=== PATIENT | male | born 1965 | race Caucasian/White ===

== ENCOUNTER 2025-01-07 22:22 | Inpatient (IN) | payer SELFPAY ==
[2025-01-08 00:12] LABS: BASOPHILS ABSOLUTE AUTO 0.04 K/uL (0.00-0.10); BASOPHILS PERCENT AUTO 0.2 % (0.1-1.3); HEMATOCRIT 43.2 % (38.4-49.7); HEMOGLOBIN 14.7 g/dL (12.9-16.9); IMMATURE GRAN ABSOLUTE AUTO 0.56 K/uL (0.00-0.23); IMMATURE GRAN PERCENT AUTO 2.6 % (0.0-0.7); LYMPHOCYTES ABSOLUTE AUTO 0.26 K/uL (0.8-3.3); LYMPHOCYTES PERCENT AUTO 1.2 % (11.4-47.7); MEAN CORPUSCULAR VOLUME 88.2 fL (81.4-99.0); MONOCYTES ABSOLUTE AUTO 0.44 K/uL (0.20-0.90); NEUTROPHILS ABSOLUTE AUTO 20.59 K/uL (1.0-7.6); PLATELET COUNT,PLT 244 K/uL (130-375); WHITE BLOOD CELL COUNT,WBC 21.9 K/uL (3.2-11.0)
[2025-01-08 00:48] LABS: ALANINE AMINOTRANSFERASE,ALT 148 U/L (12-78); ALBUMIN 3.8 g/dL (3.4-5.0); ALKALINE PHOSPHATASE 98 U/L (46-116); ANION GAP 15.4 mmol/L (5.0-14.0); ASPARTATE AMNIOTRANSFERASE,AST 225 U/L (15-37); BILIRUBIN TOTAL 1.1 mg/dL (0.2-1.0); BLOOD UREA NITROGEN,BUN 22 mg/dL (7-18); C-REACTIVE PROTEIN 1.91 mg/dL (<0.50); CALCIUM 9.3 mg/dL (8.5-10.1); CARBON DIOXIDE,CO2 26 mmol/L (21-32); CHLORIDE,CL 106 mmol/L (100-108); CREATININE 0.9 mg/dL (0.8-1.3); EST CRCL DRUG DOSING (CG) 104.02 mL/min; ESTIMATED GFR 99 mL/min (>60); GLUCOSE RANDOM 140 mg/dL (74-106); POTASSIUM,K 3.4 mmol/L (3.6-5.2); PROTEIN TOTAL,TP 7.6 g/dL (6.4-8.2); SODIUM,NA 144 mmol/L (140-148)
[2025-01-08] MEDS: Sodium Chloride 0.9% 100 ML IV SCH (01:07)
[2025-01-08] MEDS: Sodium Chloride 0.9% 10 ML Syringe FLUSH PRN (01:07)
[2025-01-08] MEDS: Iopamidol 612 MG/ML 100 ML Bottle IV SCH (01:07)
[2025-01-08] MEDS: Sodium Chloride 0.9% 1,000 ML IV SCH (03:37)
[2025-01-08] MEDS ORDERED: Sodium Chloride 0.9% 1,000 ML IV SCH (03:45)
[2025-01-08] MEDS: cefTRIAXone 2 GM in Sodium Chloride 0.9% 50 ML IV ONE (03:51)
[2025-01-08] MEDS: metroNIDAZOLE/Normal Saline 500 MG in Premix Bag 1 BAG IV ONE (03:51)
[2025-01-08 04:12] LABS: APPEARANCE,URINE CLEAR (CLEAR); BILIRUBIN,URINE NEGATIVE (NEGATIVE); COLOR,URINE YELLOW (YELLOW); GLUCOSE,URINE NEGATIVE (NEGATIVE); KETONES,URINE TRACE mg/dL (NEGATIVE); LEUKOCYTE ESTERASE,URINE NEGATIVE (NEGATIVE); NITRITE,URINE NEGATIVE (NEGATIVE); OCCULT BLOOD,URINE TRACE-INTACT (NEGATIVE); PH,URINE 8.5 (5.0-8.0); PROTEIN,URINE 30 mg/dL (NEGATIVE)
[2025-01-08 04:19] LABS: AMORPHOUS SEDIMENT,URINE NOT SEEN; BACTERIA,URINE RARE; EPITHELIAL CELLS,URINE RARE; MUCUS,URINE RARE; WBC,URINE 0-5 (0-5)
[2025-01-08] MEDS: VANCOmycin 1.5 GM in Sodium Chloride 0.9% 250 ML IV ONE (04:34)
[2025-01-08 04:40] LABS: LYME AB IgG Negative (Negative); LYME AB IgM Negative (Negative)
[2025-01-08] MEDS: Acetaminophen 325 MG Tab PO ONE (08:03)
[2025-01-08] MEDS ORDERED: Polyethylene Glycol 3350 Powder 17 GM Packet PO PRN (09:50)
[2025-01-08] MEDS ORDERED: Naloxone 0.4 MG/ML SDV IVPUSH PRN (09:50)
[2025-01-08] MEDS ORDERED: Ondansetron 4 MG/2 ML SDV IV PRN (09:50)
[2025-01-08] MEDS ORDERED: Sodium Chloride 0.9% 10 ML Syringe FLUSH PRN (09:50)
[2025-01-08] MEDS ORDERED: HYDROmorphone 0.5 MG/0.5 ML Syringe IVPUSH PRN (09:50)
[2025-01-08] MEDS ORDERED: oxyCODONE 5 MG Tab PO PRN (09:50)
[2025-01-08] MEDS: Piperacillin/Tazobactam/Dext 4.5 GM in Premix Bag 1 BAG IV ONE (10:48)
[2025-01-08] MEDS: Pantoprazole 40 MG Tab.CR PO SCH (10:48)
[2025-01-08] MEDS: Enoxaparin 40 MG/0.4 ML Syringe SUBCUT SCH (10:56)
[2025-01-08] MEDS ORDERED: VANCOmycin 1 GM SDV IV SCH (11:00)
[2025-01-08] MEDS: VANCOmycin 1.5 GM in Sodium Chloride 0.9% 250 ML IV SCH (13:41)
[2025-01-08] MEDS: Piperacillin/Tazobactam/Dext 4.5 GM in Premix Bag 1 BAG IV SCH (15:33)
[2025-01-08] MEDS: Acetaminophen 325 MG Tab PO PRN (23:56)
[2025-01-09 05:54] LABS: HEMOGLOBIN 14.4 g/dL (12.9-16.9); MEAN CORPUSCULAR HEMOGLOBIN 29.5 pg (31.6-35.5); MEAN CORPUSCULAR HGB CONC 33.5 g/dL (31.6-35.5); MEAN CORPUSCULAR VOLUME 88.1 fL (81.4-99.0); RED BLOOD CELL COUNT 4.88 M/uL (4.14-5.76); WHITE BLOOD CELL COUNT,WBC 23.2 K/uL (3.2-11.0)
[2025-01-09 06:14] LABS: A/G RATIO 0.8 (1.2-2.2); ALANINE AMINOTRANSFERASE,ALT 520 U/L (12-78); ALKALINE PHOSPHATASE 125 U/L (46-116); ASPARTATE AMNIOTRANSFERASE,AST 207 U/L (15-37); BILIRUBIN TOTAL 2.9 mg/dL (0.2-1.0); BLOOD UREA NITROGEN,BUN 16 mg/dL (7-18); CARBON DIOXIDE,CO2 25 mmol/L (21-32); CHLORIDE,CL 105 mmol/L (100-108); CREATININE 1.2 mg/dL (0.8-1.3); EST CRCL DRUG DOSING (CG) 78.01 mL/min; ESTIMATED GFR 70 mL/min (>60); GLUCOSE RANDOM 126 mg/dL (74-106); POTASSIUM,K 3.4 mmol/L (3.6-5.2); PROTEIN TOTAL,TP 6.8 g/dL (6.4-8.2); SODIUM,NA 142 mmol/L (140-148)
[2025-01-09 06:20] LABS: ANION GAP 15.4 mmol/L (5.0-14.0)
[2025-01-09] MEDS ORDERED: Sodium Chloride 0.9% 1,000 ML IV SCH (08:30)
[2025-01-09] MEDS: Potassium Chloride 20 MEQ Tab.ER PO ONE (08:43)
[2025-01-09] MEDS: VANCOmycin 1 GM in Sodium Chloride 0.9% 250 ML IV SCH (12:42)
[2025-01-12 15:39] LABS: ANAPLASMA PHAGOCYTOPHILUM PCR Not Detected; BABESIA MICROTI BY PCR Not Detected; BABESIA SPECIES BY PCR Not Detected; EHRLICHIA CHAFFEENSIS BY PCR Not Detected; EHRLICHIA EWINGII/CANIS BY PCR Not Detected; EHRLICHIA MURIS-LIKE BY PCR Not Detected
== END 2025-01-09 13:40 | DRG 872 ==
LOC: JP.ED 22:22 → JP.MS 01-08 07:34
PROVIDERS: ADMIT Hospitalist; ATTEND Hospitalist
DX: A41.59 Other Gram-negative sepsis (principal); K80.00 Calculus of gallbladder with acute cholecystitis without obstruction; R17 Unspecified jaundice; Z87.891 Personal history of nicotine dependence
CPT/HCPCS: 36415; 71046; 71046-26; 74177; 76705; 80053; 80202; 81001; 83605; 83690; 84484; 85025; 85027; 86140; 86618; 87040; 87077; 87186; 87468; 87469; 87484; 87798; 99222; 99239; A9270-GY; J0696; J1836; J2543; J3370; J3371; J7030; J7050; Q9967